=== PATIENT | male | born 2000 ===

== ENCOUNTER 2022-01-19 21:18 | Emergency (ER) | payer MEDICAID ==
[~2022-01-19] VITALS: Ht 180.3 cm; Wt 117.5 kg
[2022-01-19 22:16] VITALS: BP 155/80
== END 2022-01-20 00:22 | disposition left against medical advice (07) ==
LOC: ER 21:20
DX: R10.30 Lower abdominal pain, unspecified (principal); Z53.21 Procedure and treatment not carried out due to patient leaving prior to being seen by health care provider